=== PATIENT | female | born 2000 | race Caucasian/White ===

== ENCOUNTER 2018-02-22 16:02 | Emergency (ER) | payer OTHER, BC ==
[2018-02-22 16:30] VITALS: BP 107/77
[2018-02-22] MEDS ORDERED: Ibuprofen TAB* 600 MG PO ONE (16:57)
[2018-02-22] MEDS ORDERED: Acetaminophen TAB* 325 MG PO ONE (16:57)
--- NOTE | 2018-02-22 17:12 | ED ---
Influenza-Like Illness - HPI Summary HPI Summary: pt presents to the ED for evaluation of her multiple symptoms including subjective fevers, chills, cough. 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 she has been noticing increased cough and congestion. she feels an occasional wheeze as well. her boyfriend is present with the patient. - History of Current Complaint Chief Complaint: UCGeneralIllness Hx Obtained From: Patient Onset/Duration: Gradual Onset Severity: Mild Associated Signs & Symptoms: Fever - Allergy/Home Medications Allergies/Adverse Reactions: Allergies Allergy/AdvReac Type Severity Reaction Status Date / Time Penicillins Allergy Hives Verified 02/22/18 16:30 Home Medications: Home Medications Dm/Acetaminophen/Doxylamine [Night Time Cold-Flu Rlf Sftgl] 1 each PO DAILY 10/04 [History Confirmed 02/22/18] Ibuprofen 400 mg PO Q6H 02/22/18 [History Confirmed 02/22/18] Levonorgestrel (Iud) [Kyleena IUD] 1 each DAILY 02/22/18 [History Confirmed 10/04] PMH/Surg Hx/FS Hx/Imm Hx Previously Healthy: Yes Respiratory History: Denies: Hx Asthma Musculoskeletal History: Denies: Hx Arthritis Sensory History: Denies: Hx Cataracts - Surgical History Surgery Procedure, Year, and Place: TONSILLECTOMY. WISDOM TEETH Infectious Disease History: No Infectious Disease History: Denies: Traveled Outside the [place] in Last 30 Days - Social History Alcohol Use: Weekly Substance Use Type: Reports: None Smoking Status (MU): Never Smoked Tobacco Review of Systems Positive: Fever - subjective Eyes: Negative Positive: Sore Throat. Negative: Epistaxis, Dental Pain, Ear Ache, Nasal Discharge Cardiovascular: Negative Positive: Cough. Negative: Shortness Of Breath Gastrointestinal: Negative Genitourinary: Negative Positive: Myalgia. Negative: Arthralgia, Decreased ROM, Edema Skin: Negative Positive: Headache Psychological: Normal All Other Systems Reviewed And Are Negative: No Physical Exam Triage Information Reviewed: Yes Vital Signs On Initial Exam: Initial Vitals Temp Pulse Resp BP Pulse Ox 101 F 114 18 107/77 98 02/22/18 16:26 02/22/18 16:26 02/22/18 16:26 02/22/18 16:26 02/22/18 16:26 Vital Signs Reviewed: Yes Appearance: Positive: Well-Appearing, No Pain Distress, Well-Nourished Skin: Positive: Warm, Dry Eyes: Positive: Normal, EOMI, VIRGILIO ENT: Positive: Normal ENT inspection, Hearing grossly normal, Pharynx normal Neck: Positive: Supple, Nontender Respiratory/Lung Sounds: Positive: Clear to Auscultation, Breath Sounds Present Cardiovascular: Positive: Normal, RRR Abdomen Description: Positive: Nontender, Soft Bowel Sounds: Positive: Present Musculoskeletal: Positive: Normal, Strength/ROM Intact Neurological: Positive: Normal, Sensory/Motor Intact, Alert, Oriented to Person Place, Time, CN Intact II-III Psychiatric: Positive: Normal AVPU Assessment: Alert Diagnostics - Vital Signs Vital Signs Temp Pulse Resp BP Pulse Ox 02/22/18 16:26 101 F 114 18 107/77 98 - Laboratory Lab Statement: Any lab studies that have been ordered have been reviewed, and results considered in the medical decision making process. Flu Symptom Course/Dx - Course Course Of Treatment: pt's influenza A&B are negative. I informed pt that she has a uri/bronchitis. will rx albuterol mdi, prednisone and zpak. pt encouraged to f/u with pcp. pt voiced understanding of all instructions. - Diagnoses Provider Diagnoses: Bronchitis Discharge - Sign-Out/Discharge Documenting (check all that apply): Patient Departure All imaging exams completed and their final reports reviewed: No Studies - Discharge Plan Condition: Stable Disposition: HOME Prescriptions: Albuterol HFA INHALER* [Ventolin HFA Inhaler*] 2 puff INH Q6H PRN #1 mdi MDD 8 PRN Reason: Wheezing Azithromyxin MAZIN (NF) [Z-Mazin (Zithromax) 250 mg tabs #6] 2 tab PO .TODAY, THEN 1 DAILY #6 tab predniSONE TAB* [Deltasone 20 MG TAB*] 60 mg PO DAILY #15 tab Patient Education Materials: Upper Respiratory Infection (ED) Forms: *School Release Referrals: [facility] [Provider Group] No Primary Care Phys,NOPCP [Primary Care Provider] - Additional Instructions: Take the medications as instructed above. return if worse or any new symptoms. it is important to follow up with your primary care physician this week. use the inhaler and spacer as instructed. - Billing Disposition and Condition Condition: STABLE Disposition: Home
== END 2018-02-22 17:46 | disposition home or self-care (01) ==
LOC: UCCORT 16:02
DX: J18.9 Pneumonia, unspecified organism (principal); Z88.0 Allergy status to penicillin
CPT/HCPCS: 71046; 99202; A9270-GY; G0463

== ENCOUNTER 2018-05-30 12:21 | Emergency (ER) | payer OTHER, BC ==
[2018-05-30 13:29] VITALS: BP 108/79
--- NOTE | 2018-05-30 13:44 | UC ---
FLU HPI - HPI Summary HPI Summary: 18 yo female presents with fever of around 101F, fatigue, body aches, and headache that began yesterday. She has taken ibuprofen for her symptoms with mild relief. She does not smoke. She has been sleeping a lot more than usually. Denies sinus symptoms, sore throat, cough, SOB, chest pain, n/v. - History of Current Complaint Chief Complaint: UCRespiratory Stated Complaint: COUGH,CHEST CONGESTION,FEVER,CHOU Time Seen by Provider: 05/30/18 13:43 Hx Obtained From: Patient Hx Last Menstrual Period: since IUD Onset/Duration: Sudden Onset Severity Currently: Moderate Severity Initially: Moderate Pain Intensity: 7 Pain Scale Used: 0-10 Numeric - Allergy/Home Medications Allergies/Adverse Reactions: Allergies Allergy/AdvReac Type Severity Reaction Status Date / Time Penicillins Allergy Hives Verified 05/30/18 13:25 PMH/Surg Hx/FS Hx/Imm Hx - Additional Past Medical History Additional PMH: None - Surgical History Surgical History: Yes Surgery Procedure, Year, and Place: TONSILLECTOMY. WISDOM TEETH - Family History Known Family History: Positive: None - Social History Occupation: Student Lives: With Family Alcohol Use: Occasionally Substance Use Type: None Smoking Status (MU): Never Smoked Tobacco Review of Systems All Other Systems Reviewed And Are Negative: Yes Constitutional: Positive: Fever, Fatigue, Other - Body aches Skin: Positive: Negative Eyes: Positive: Negative ENT: Positive: Negative Respiratory: Positive: Negative Cardiovascular: Positive: Negative Gastrointestinal: Positive: Negative Neurovascular: Positive: Negative Musculoskeletal: Positive: Negative Neurological: Positive: Headache Psychological: Positive: Negative Physical Exam - Summary Physical Exam Summary: GENERAL: NAD. WDWN. No pain distress. SKIN: No rashes, sores, lesions, or open wounds. HEENT: Head: AT/NC Eyes: EOM intact. Conjunctiva clear without inflammation or discharge. Ears: Hearing grossly normal. TMs intact, no bulging, erythema, or edema. Nose: Nasal mucosa pink and moist. NTTP maxillary and frontal sinus. Throat: Posterior oropharynx without exudates, erythema. Uvula midline. NECK: Supple. Nontender. No lymphadenopathy. CHEST: CTAB. No r/r/w. No accessory muscle use. Breathing comfortably and in no distress. CV: RRR. Without m/r/g. Pulses intact. Cap refill <2seconds NEURO: Alert. PSYCH: Age appropriate behavior. Triage Information Reviewed: Yes Vital Signs: Initial Vital Signs Temp 100.9 F 05/30/18 13:25 Pulse 113 05/30/18 13:25 Resp 18 05/30/18 13:25 BP 108/79 05/30/18 13:25 Pulse Ox 100 05/30/18 13:25 Laboratory Tests 05/30/18 13:50 Influenza A (Rapid) Positive A Vital Signs Reviewed: Yes Flu Course/Dx - Course Course Of Treatment: POC flu positive. rx for tamiflu - Differential Dx/Diagnosis Provider Diagnosis: Influenza Discharge - Sign-Out/Discharge Documenting (check all that apply): Patient Departure All imaging exams completed and their final reports reviewed: No Studies - Discharge Plan Condition: Stable Disposition: HOME Prescriptions: Oseltamivir CAP* [Tamiflu CAP*] 75 mg PO BID #10 cap Patient Education Materials: Influenza (DC) Forms: *Gen. Provider Communication, *School Release Referrals: No Primary Care Phys,NOPCP [Primary Care Provider] - Additional Instructions: If you develop a fever, shortness of breath, chest pain, new or worsening symptoms - please call your PCP or go to the ED. - Billing Disposition and Condition Condition: STABLE Disposition: Home
[2018-05-30 13:55] LABS: Influenza A Molecular POSITIVE (Negative)
== END 2018-05-30 14:19 | disposition home or self-care (01) ==
LOC: UCCORT 12:21
DX: J11.1 Influenza due to unidentified influenza virus with other respiratory manifestations (principal); Z88.0 Allergy status to penicillin
CPT/HCPCS: 99212; G0463

== ENCOUNTER 2018-09-30 09:35 | Emergency (ER) | payer OTHER, BC ==
[2018-09-30 09:56] VITALS: BP 107/63
--- NOTE | 2018-09-30 10:46 | UC ---
Skin Complaint HPI - HPI Summary HPI Summary: 18 yo female with left swollen and tender axillary LN noted three days ago yesterday she stated the skin overlying it was red and imflammed yesterday she note three right scalp tender LN no fever no wt loss no fatigue no sore throat - History of Current Complaint Chief Complaint: UCSkin Time Seen by Provider: 09/30/18 10:28 Stated Complaint: SKIN CONCERN Hx Obtained From: Patient Hx Last Menstrual Period: HAS AN IUD. DOES NOT HAVE REG PERIODS Onset/Duration: Gradual Onset, Lasting Days Timing: Constant Onset Severity: Mild Current Severity: Moderate Pain Intensity: 7 - when touched Pain Scale Used: 0-10 Numeric Location: Other - see image Character: Swelling, Painful Aggravating Factor(s): Touch Alleviating Factor(s): Nothing Associated Signs & Symptoms: Positive: Tenderness - Allergy/Home Medications Allergies/Adverse Reactions: Allergies Allergy/AdvReac Type Severity Reaction Status Date / Time Penicillins Allergy Unknown Hives Verified 09/30/18 09:48 Home Medications: Home Medications Levonorgestrel (Iud) [Liletta IUD] 0 mcg 09/30/18 [History] PMH/Surg Hx/FS Hx/Imm Hx - Additional Past Medical History Additional PMH: has a right breast mass that gets checked q 6mos with U/S Previously Healthy: Yes Respiratory History: Pneumonia - Surgical History Surgical History: Yes Surgery Procedure, Year, and Place: TONSILLECTOMY. WISDOM TEETH - Family History Known Family History: Positive: None, Other - no FH breast CA Negative: Cardiac Disease, Hypertension, Diabetes - Social History Alcohol Use: Occasionally Substance Use Type: None Smoking Status (MU): Never Smoked Tobacco Review of Systems All Other Systems Reviewed And Are Negative: Yes Constitutional: Positive: Negative Skin: Positive: Negative Eyes: Positive: Negative ENT: Positive: Negative Respiratory: Positive: Negative Cardiovascular: Positive: Negative Gastrointestinal: Positive: Negative Genitourinary: Positive: Negative Motor: Positive: Negative Neurovascular: Positive: Negative Musculoskeletal: Positive: Negative Neurological: Positive: Negative Psychological: Positive: Negative Physical Exam Triage Information Reviewed: Yes Appearance: Well-Appearing, No Pain Distress, Well-Nourished Vital Signs: Initial Vital Signs Temp 97.8 F 09/30/18 09:49 Pulse 74 09/30/18 09:49 Resp 16 09/30/18 09:49 BP 107/63 09/30/18 09:49 Pulse Ox 100 09/30/18 09:49 Vital Signs Reviewed: Yes Eyes: Positive: Conjunctiva Clear ENT: Positive: Hearing grossly normal, Pharynx normal, Nasal congestion, Nasal drainage, TMs normal, Uvula midline. Negative: Tonsillar swelling, Tonsillar exudate, Trismus, Muffled voice, Hoarse voice Neck: Positive: Supple, Nontender, No Lymphadenopathy - NO CERVICAL LN Respiratory: Positive: Lungs clear, Normal breath sounds, No respiratory distress Cardiovascular: Positive: RRR Abdomen Description: Positive: Nontender, No Organomegaly. Negative: CVA Tenderness (R), CVA Tenderness (L) Bowel Sounds: Positive: Present Musculoskeletal: Positive: ROM Intact, No Edema Neurological: Positive: Alert Psychological Exam: Normal Skin Exam: Normal Images Head: 1 - string of three tiny tender LNs Front/Back of Body, Lg ([place]): 1 - tender left axillary left node. not flutuant ...no overlying erthyema Course/Dx - Diagnoses Provider Diagnosis: Lymphadenopathy, axillary, Lymphadenopathy of head and neck Discharge - Sign-Out/Discharge Documenting (check all that apply): Patient Departure All imaging exams completed and their final reports reviewed: No Studies - Discharge Plan Condition: Stable Disposition: HOME Patient Education Materials: Lymphadenopathy (ED) Referrals: No Primary Care Phys,NOPCP [Primary Care Provider] - - Billing Disposition and Condition Condition: STABLE Disposition: Home
[2018-09-30 14:48] LABS: ABS Eosinophils 0.3 10^3/ul (0-0.6); ABS Lymphocytes 1.6 10^3/ul (1.0-4.8); ABS Monocytes 0.7 10^3/ul (0-0.8); ABS Neutrophils 2.7 10^3/ul (1.5-7.7); Eosinophil % 5.9 %; Hematocrit 44 % (35-47); Hemoglobin 14.8 g/dL (12.0-16.0); Lymphocyte % 29.9 %; Mean Corpuscular HGB Conc 34 g/dL (31-36); Mean Corpuscular Hemoglobin 29 pg (27-31); Mean Corpuscular Volume 85 fL (80-97); Mean Platelet Volume 8.8 fL (7.4-10.4); Nucleated Red Blood Cells % 0.1; Platelet Count 306 10^3/uL (150-450); Red Blood Count 5.15 10^6 /uL (3.70-4.87); Red Cell Distribution Width 14 % (10-15); White Blood Count 5.4 10^3/uL (3.5-10.8)
== END 2018-09-30 11:03 | disposition home or self-care (01) ==
LOC: UCCORT 09:35
DX: R59.1 Generalized enlarged lymph nodes (principal)
CPT/HCPCS: 36415; 85025; 86308; 99212; G0463